=== PATIENT | female | born 1930 | race Caucasian/White ===

== ENCOUNTER 2016-03-23 16:29 | Inpatient (IN) | payer OTHER ==
[~2016-03-23] VITALS: Ht 165.1 cm; Wt 78.7 kg
--- NOTE | ~2016-03-23 | HC ---
[facility] [place] [address] CONSULTATION Name: DAYAMI WORTHINGTONMARLIN Amaya Room #: 420-P ADM IN .R.#: [id number] Admission: 03/23/16 Attend Phys: Concetta Fleming MD Discharge: Date of : 32 Report #: [id number] THIS REPORT FOR: //name// CC: Concetta Fleming PRIMARY CARE PHYSICIAN: Dr. Fleming. REFERRAL PHYSICIAN: Dr. Davenport. REASON FOR REFERRAL: Pneumonia. HISTORY OF PRESENT ILLNESS: The patient is an 85-year-old white female from a nursing facility with increasing dyspnea. Chest x-ray on admission revealed infiltrates. The patient was admitted for pneumonia. A pulmonary consultation was requested. The patient at present cannot give much history. She is awake, appears to mildly distressed and tachypneic. According to records, the patient was found to be hypoxic with saturation 82% on the day of admission. The patient had a mild nonproductive cough along with lower extremity edema and erythema. PAST MEDICAL HISTORY: Is notable for aortic stenosis, COPD with chronic bronchitis and asthma, dementia, depression, gastroesophageal reflux disease, chronic lower extremity edema, hypertension, hyperlipidemia, mitral valve regurgitation, osteoarthritis. ALLERGIES: Are multiple including PENICILLIN, CEPHALOSPORINS, FLUOROQUINOLONES, CLARITHROMYCIN, CLAVULANIC ACID, ARICEPT, CLARITIN, REGLAN, METRONIDAZOLE, MORPHINE, SCOPOLAMINE, SULFA, reactions unspecified. MEDICATIONS: List reviewed, is in the MAR. She is also on albuterol and nebulized albuterol along with Flovent to 220 mcg 2 puffs twice a day, prednisone 10 mg once a day. FAMILY HISTORY: Noncontributory. SOCIAL HISTORY: Remarkable for past history of tobacco use. She has quit years ago. There is no history of alcohol use. She is a resident of nursing care facility. REVIEW OF SYSTEMS: Deferred as the patient is not able to answer to questions. PHYSICAL EXAMINATION: GENERAL: She is awake, appears tachypneic and moderately distressed. VITAL SIGNS: Temperature is 98 degrees Fahrenheit, pulse is 90, respiratory [facility] [address] [place] [address] CONSULTATION Name: ALEJANDRA WORTHINGTON Room #: 420-[facility] IN ..#: [id number] Admission: 03/23/16 Attend Phys: Concetta Fleming MD Discharge: Date of : 32 Report #: [id number] rate is 22, blood pressure is 150/80 mmHg, saturation 92%. HEENT: Normocephalic, atraumatic. NECK: Supple without any lymphadenopathy or thyromegaly. CHEST: Breath sounds are decreased bilaterally with mild expiratory wheezes. CARDIOVASCULAR: Normal S1, S2. There is no murmurs or gallop. There is no JVD. There is no carotid bruit. Pulses are 2+/4+ bilaterally. ABDOMEN: Soft, nontender, no organomegaly or masses felt. EXTREMITIES: There is no cyanosis or clubbing, but remarkable for trace bilateral lower extremity edema. LABORATORY DATA: Portable chest x-ray revealed bibasilar infiltrates. Mild left lower lobe infiltrates is also noted. Electrolytes unremarkable. Liver function test was grossly unremarkable. WBC is 13,100 without a left shift. Eosinophils is mildly elevated at 3.5%. Arterial blood gas revealed pH 7.38, pCO2 of 56, pO2 97 on 4 liters of O2. IMPRESSION: 1. Progressive hypoxemic hypercapnic respiratory failure in this 85-year-old white female. Etiology is probably secondary to underlying pneumonia and probable COPD with exacerbation. 2. Pneumonia, right lower lobe. She is suspected to have nosocomial infectious processes, suspect possible aspiration. Gram-negative is also considered. 3. History of asthma/chronic bronchitis, with exacerbation. 4. Bilateral lower extremity cellulitis. 5. Hypertension. 6. Gastroesophageal reflux disease. 7. Dementia. RECOMMENDATION: Agree with broad spectrum antibiotics along with bronchodilators and corticosteroids. DVT and GI prophylaxis will be addressed. Overall, prognosis is felt to be guarded given advanced age and dementia. Thank you for this consultation. <ELECTRONICALLY SIGNED> By: Elie Szymanski MD 03/31/16 1634 [id number] [id number] Elie Szymanski MD /nt
--- NOTE | ~2016-03-23 | 2DMMODE ---
[facility] [place] [facility] [place] [address] 2 D/M-MODE ECHOCARDIOGRAM Name: ALEJANDRA WORTHINGTON Room #: 245-P [facility] IN .R.#: [id number] Admission: 03/23/16 Attend Phys: Concetta Fleming MD Discharge: Date of : 32 Date of Service: 03/28/16 1245 Report #: [id number] THIS REPORT FOR: //name// Transthoracic Echocardiography Ordering physician: Elie Szymanski Referring physician: Elie Szymanski Window Shade Cutter: JOELLE Rodriguez Indications/History: CHF, HTN, COPD. BP: 191 / HR: 92bpm Height: 65in Weight: 182.6lb 97 Study data: M-mode, complete 2D, complete spectral Doppler, and color Doppler. Location: Bedside. Routine. Image quality was adequate. 2D measurements Normal Normal LVID ED 41.3mm 36-57 IVS ED 7.3mm 6-11 LVID ES 28.4mm 23-40 LVPW ED 6.7mm 6-11 LA volume index 36ml/m2 16-28 AoRoot diam ED 25mm 21-37 LVOT diameter 18mm 18-23 Findings: Left ventricle: The cavity size was normal. Wall thickness was normal. Systolic function was hyperdynamic. The estimated ejection fraction was in the range of 65% to 70%. Wall motion was normal. Right ventricle: The cavity size was normal. Systolic function was normal. Right atrium: The atrium was dilated. Left atrium: The atrium was dilated. Volume index: 36ml/m2 (S). Aortic valve: Trileaflet; mildly thickened, mildly calcified leaflets. Doppler: There was mild to moderate stenosis. No regurgitation. Peak velocity: 311.7cm/s (S). Valve area: 1cm2(VTI). Mean gradient: 16.8mm Hg (S). Peak gradient: 38.9mm Hg (S). [facility] [address] [place] [address] 2 D/M-MODE ECHOCARDIOGRAM Name: ALEJANDRA WORTHINGTON Room #: 245-P [facility] IN ..#: [id number] Admission: 03/23/16 Attend Phys: Concetta Fleming MD Discharge: Date of : 32 Date of Service: 03/28/16 1245 Report #: [id number] Mitral valve: Mildly calcified annulus. Doppler: There was no evidence for stenosis. Moderate regurgitation. Peak E-wave velocity: 156.5cm/s. Peak gradient: 9.8mm Hg (D). Peak A-wave velocity: 124.7cm/s. Tricuspid valve: Structurally normal valve. Doppler: There was no evidence for stenosis. Mild-moderate regurgitation. Regurgitant peak velocity: 396.4cm/s. Peak RV-RA gradient: 63mm Hg (S). Pulmonic valve: Structurally normal valve. Doppler: There was no evidence for stenosis. No regurgitation. Pericardium: There was no pericardial effusion. Aorta: Aortic root: The aortic root was normal in size. Pulmonary artery: Systolic pressure was estimated to be 73mm Hg. Diastolic function: Normal diastolic function. Systemic veins: Inferior vena cava: The vessel was dilated; the respirophasic diameter changes were blunted (< 50%). Conclusions 1. Left ventricle: The cavity size was normal. Wall thickness was normal. Systolic function was hyperdynamic. The estimated ejection fraction was in the range of 65% to 70%. 2. Right atrium: The atrium was dilated. 3. Left atrium: The atrium was dilated. 4. Aortic valve: Trileaflet; mildly thickened, mildly calcified leaflets. 5. Mitral valve: Mildly calcified annulus. Moderate regurgitation. 6. Tricuspid valve: Mild-moderate regurgitation. 7. Pulmonary arteries: Systolic pressure was estimated to be 73mm Hg. <ELECTRONICALLY SIGNED> By: Enrico Gardner MD 03/28/16 1524 1245 1524 Enrico Gardner MD /azalia
--- NOTE | ~2016-03-23 | EKG ---
[address] [address] ELECTROCARDIOGRAM REPORT Name: ALEJANDRA WORTHINGTON Room #: 245-P [facility] IN M.R.#: [id number] Admission: 03/23/16 Attend Phys: Concetta Fleming MD Discharge: Date of : 32 Report #: [id number] THIS REPORT FOR: //name// [facility] Test Date: 2016-03-28 Test Time: 07:08:08 Pat Name: ALEJANDRA WORTHINGTON Department: [facility] Gender: F Funeral Home Manager: aminata : 1930 Requested By: Concetta Fleming Order Number: [id number] MD: Gildardo Srinivasan Measurements Intervals [place] Rate: 100 P: 74 MD: 157 QRS: 36 QRSD: 83 T: 4 QT: 329 QTc: 425 Interpretive Statements Sinus tachycardia Atrial premature complex Compared to ECG 03/23/2016 17:30:30 Atrial premature complex(es) now present Sinus rhythm no longer present Electronically Signed On 03-28-2016 8:24:03 BEAM RACKER by Gildardo Srinivasan [email or web address] <ELECTRONICALLY SIGNED> By: Gildardo Srinivasan MD 03/28/16 0824 0708 Gildardo Srinivasan MD /EPI
--- NOTE | ~2016-03-23 | H ---
[facility] [place] [address] HISTORY AND PHYSICAL Name: SHERONMitaALEJANDRA Room #: 420-P [facility] IN M.R.#: [id number] Admission: 03/23/16 Attend Phys: Concetta Fleming MD Discharge: 04/06/16 Date of : 32 Report #: [id number] THIS REPORT FOR: //name// CC: Concetta Fleming DATE OF SERVICE: 03/23/2016 CHIEF COMPLAINT: Hypoxemia. HISTORY OF PRESENT ILLNESS: The patient is an 85-year-old female who resides at [facility]. She has advanced dementia and unfortunately has been treated for acute bronchitis or pneumonia twice in the past 4 to 5 months. On the day of admission, she was found to be significantly hypoxic. She was brought to [place] for altered mental evaluation where she was found to have findings consistent with pneumonia as well as cellulitis of her lower extremities. She was given IV vancomycin and Fortaz in the Emergency Department and she has been admitted for further medical management. PAST MEDICAL HISTORY: Advanced dementia, hypertension, asthma, depression, gastroesophageal reflux disease, and constipation. ALLERGIES: No known drug allergies. MEDICATIONS: Zyrtec 10 mg daily, albuterol nebulized treatments q.4 hours p.r.n, ProAir inhaler 8.5 inhaler 2 puffs q.6 hours p.r.n., nitroglycerin 0.4 mg sublingual every 5 minutes p.r.n., Bystolic 5 mg daily, lisinopril 10 mg b.i.d., Aldactone 25 mg daily, aspirin 81 mg daily, ibuprofen 200 mg q.4 hours., Tylenol 650 q.6 hours p.r.n., Depakote 250 mg b.i.d., sertraline 100 mg at bedtime, risperidone 0.5 mg at bedtime, Namenda 5 mg b.i.d., lactulose 10 mg b.i.d., calcium carbonate with vitamin D 600/400 one p.o. at bedtime, potassium chloride 10 mEq daily, Lasix 20 mg at bedtime, Flovent 220 mcg 2 puffs b.i.d., Singulair 10 mg at bedtime, Flonase 1 spray in each nostril at bedtime, Colace 100 mg b.i.d, MiraLax 17 grams b.i.d., ranitidine 1 tablet daily, prednisone 10 mg daily. FAMILY HISTORY: Noncontributory. SOCIAL HISTORY: The patient is . She lives at a halfway facility and does not use tobacco or alcohol. REVIEW OF SYSTEMS: GENERAL: She is able to feed herself, but needs assistance with most other activities of daily living. HEENT: Negative. PULMONARY: As per history of present illness. CARDIOVASCULAR: She denies chest pain. [place] [address] HISTORY AND PHYSICAL Name: ELINALEJANDRA A Room #: 420-P [facility] IN M.R.#: [id number] Admission: 03/23/16 Attend Phys: Concetta Fleming MD Discharge: 04/06/16 Date of : 32 Report #: [id number] GASTROINTESTINAL: Incontinent. GENITOURINARY: Incontinent. MUSCULOSKELETAL: She ambulates about the facility in a wheelchair. PHYSICAL EXAMINATION: GENERAL: The patient is an elderly female lying in bed in no apparent distress, wearing oxygen at 2 liters per minute via nasal cannula. HEENT: Head: Normocephalic, atraumatic. Pupils are equal and reactive. Extraocular muscles are intact. Oropharynx is moist. NECK: Supple. Trachea midline. LUNGS: Diffuse expiratory wheezing. CARDIOVASCULAR: Regular rate and rhythm. ABDOMEN: Soft, nontender, nondistended with normoactive bowel sounds. SKIN: Warm and dry. Turgor is adequate. She has mild to moderate erythema and warmth in both distal lower extremities. LYMPHATICS: No cervical or axillary lymphadenopathy. NEUROLOGIC: She is awake, alert, oriented only to self. Moves all extremities and ____ to command without focal neurologic deficit or lateralizing signs. LABORATORY DATA: Pertinent labs include sodium 149, CO2 of 37, anion gap of 5, ALT of 10. Albumin of 2.6. BNP 1238. WBC is normal at 9.5, hemoglobin 11.3, hematocrit 33.8. Differential was unremarkable. Urinalysis is unremarkable. Arterial blood gas reveals pH of 7.4, pCO2 of 61, pO2 of 77. ____ per minute via nasal cannula with oxygen saturation of 95%. Chest x-ray shows cardiomegaly with mild vascular congestion and bilateral interstitial prominence and patchy bilateral lower lobe atelectasis/pneumonitis, right greater than left. ASSESSMENT: 1. Healthcare-acquired pneumonia, concerned with pharyngeal dysphagia and possible aspiration given repeated episodes of respiratory infections. 2. Bilateral lower extremity cellulitis. 3. Hypertension. 4. Gastroesophageal reflux disease. 5. Asthma. 6. Depression. 7. Senile dementia with behaviors. PLAN: Admission, start Solu-Medrol 20 mg every 12 hours. Continue Fortaz and vancomycin. Continue nebulized treatments q.4 hours and we will start her on mechanical soft diet with ground meat and nectar thickened liquids due to concerns with aspiration. We will ask speech therapy to evaluate and treat and may need to proceed with a video swallow though I think given recurrent episodes of pulmonary infections changing her to nectar thickened liquids may be best option. Initiate DVT prophylaxis with sequential compression devices as well as Lovenox. [facility] [address] [address] HISTORY AND PHYSICAL Name: ALEJANDRA WORTHINGTON Monique Room #: 420-P [facility] IN .R.#: [id number] Admission: 03/23/16 Attend Phys: Concetta Fleming MD Discharge: 04/06/16 Date of : 32 Report #: [id number] Of note, a lengthy discussion was held with the patient's daughter and durable power of erisa attorney who was at bedside. All questions were answered. CODE STATUS: DNR established at outside the hospital. <ELECTRONICALLY SIGNED> By: Concetta Fleming MD 04/22/16 1931 12 28 Concetta Fleming MD /nt
--- NOTE | ~2016-03-23 | CNG ---
[facility] [place] [address] CYTO-NONGYN REPORT PROCEDURE Name: ALEJANDRA TOBAR Room #: 420-P ADM IN M.R.#: [id number] Admission: 03/23/16 Date of : 32 Discharge: Report #: [id number] Path Case #: [id number] CYTOPATHOLOGY REPORT COLLECTION DATE: 04/03/2016 RECEIVED DATE: 04/03/2016 SUBMITTING PHYS: Dr. Concetta Fleimng OTHER PHYS: CLINICAL HISTORY: Pneumonia. SPECIMEN(S) RECEIVED: A.Pleural fluid, Right * * * * * * * * * * * * FINAL DIAGNOSIS: A. Pleural fluid, Right: NEGATIVE FOR MALIGNANT CELLS. Scattered lymphocytes and proteinaceous debris. PATHOLOGIST: Eliud Ruiz M.D. REPORT ELECTRONICALLY SIGNED BY: Eliud Ruiz M.D. DATE/TIME: 04/04/2016 11:55 * * * * * * * * * * * * GROSS PATHOLOGY: A. Pleural fluid, Right: The specimen is submitted unfixed, labeled "Alejandra Tobar". Received by the Cytology Department is 20 mL of clear yellow fluid. One ThinPrep slide and a cell block were prepared. (clt 04.03.2016) THERAPY TECH(S): [facility] INITIAL CPT CODE(S): A; 13356, 27670 Professional services performed by [facility] at [facility] [address], [place] [address] Technical services performed by [facility] at [address] [place] [address]., [address], [place] [address]. [facility] [address] [place] [address], [address] [place] [address] PHONE: [phone] [facility] [address] [place] [address] CYTO-NONGYN REPORT PROCEDURE Name: ALEJANDRA TOBAR Room #: 420-P [facility] IN ..#: [id number] Admission: 03/23/16 Date of : 32 Discharge: Report #: [id number] Path Case #: [id number] DIRECTOR: Christoph Vera M.D. * * * END OF REPORT * * *
--- NOTE | ~2016-03-23 | EKG ---
[address] [address] ELECTROCARDIOGRAM REPORT Name: ALEJANDRA WORTHINGTON Room #: 310-P [facility] IN M.R.#: [id number] Admission: 03/23/16 Attend Phys: Concetta Fleming MD Discharge: Date of : 32 Report #: [id number] THIS REPORT FOR: //name// [facility] ED Test Date: 2016-03-23 Test Time: 17:30:30 Pat Name: ALEJANDRAMARLIN BENNETTEDWIN Department: Room: 310 Gender: F Porter [place]: [place] : 1930 Requested By: Hailey Morris Order Number: [id number] MD: Gildardo Srinivasan Measurements Intervals [place] Rate: 84 P: 77 GA: 174 QRS: 39 QRSD: 87 T: 53 QT: 357 QTc: 422 Interpretive Statements Sinus rhythm No previous ECG available for comparison Electronically Signed On 03-24-2016 8:27:23 MEAT STUFFER by Gildardo Srinivasan [email or web address] <ELECTRONICALLY SIGNED> By: Gildardo Srinivasan MD 03/24/16 0827 1730 1730 MD EZIO Evans
[~2016-03-23 16:29] MED LIST: ALBUTEROL2.5 MG/0.5; BYSTOLIC 5 MG5 M1 PO; CALCIUM 600 +1 EAC1 PO; COLACE100 MG PO; FLONASE 0.05%50 MCG INH; FLOVENT HFA 2220 MC1 INH; HEARTBURN RELI150 M1 PO; HYDROCODONE-AP1 EAC6 PO; KLOR-CON 1010 MEQ PO; LASIX 20 MG TAB20 MG PO; MAXITROL EYE DRO5 ML; MIRALAX17 GM; NAMENDA 5 MG TAB5 M1 PO; NITROSTAT0.4 M1; PRINIVIL10 MG PO; PROAIR HFA8.5 GM INH; SALINE NASAL SP30 ML; SINGULAIR 10 MG10 M1 PO; ZOLOFT50 MG PO; ZYRTEC10 MG PO
[2016-03-23 16:30] VITALS: BP 119/62
[2016-03-23 17:20] LABS: ABSOLUTE NEUTROPHILS 6.4 thou/uL (1.4-8.2); BASOPHILS 0.9 % (0.0-2.0); EOSINOPHILS 3.5 % (0.0-3.0); HEMATOCRIT 33.8 % (37.0-47.0); HEMOGLOBIN 11.3 gm/dL (12.0-15.0); LYMPHOCYTES 18.8 % (24.0-44.0); MCH 33.3 pg (26.0-34.0); MCHC 33.3 % (28.0-37.0); MCV 99.9 fL (80.0-100.0); MONOCYTES 9.3 % (1.0-8.0); PLATELET COUNT 152 thou/uL (150-400); POLYS 67.5 % (36.0-66.0); RBC 3.38 mil/uL (4.20-5.00); RDW 15.3 % (10.5-14.5); WBC 9.5 thou/uL (4.0-11.0)
[2016-03-23 17:21] LABS: MANUAL DIFF NO
[2016-03-23 17:34] LABS: ALBUMIN 2.6 g/dL (3.4-5.0); ALKALINE PHOSPHATASE 70 U/L (46-116); ANION GAP 5 mmol/L (7-16); BUN 14 mg/dL (7-18); CALCIUM 8.2 mg/dL (8.5-10.1); CHLORIDE 107 mmol/L (98-107); CO2 37 mmol/L (21-32); CREATININE 0.8 mg/dL (0.6-1.3); GLUCOSE 94 mg/dL (70-99); POTASSIUM 3.9 mmol/L (3.5-5.1); SGOT 13 U/L (15-37); SODIUM 149 mmol/L (136-145); TOTAL BILIRUBIN 0.4 mg/dL (<0.1-1.0); TOTAL PROTEIN 6.5 g/dL (6.4-8.2); TROPONIN-I < 0.04 ng/mL (<0.04-0.07)
[2016-03-23] MEDS ORDERED: ASPIR 8181 MG PO (17:39)
[2016-03-23] MEDS ORDERED: SPIRONOLACTONE25 M1 PO (17:42)
[2016-03-23] MEDS ORDERED: IBUPROFEN 200200 M1 PO (17:43)
[2016-03-23] MEDS ORDERED: TYLENOL325 MG PO (17:43)
[2016-03-23] MEDS ORDERED: CONSTULOSE10 GM/15 M PO (17:45)
[2016-03-23] MEDS ORDERED: DEPAKOTE 250MG250 M1 PO (17:46)
[2016-03-23] MEDS ORDERED: PREDNISONE 10 M10 MG PO (17:46)
[2016-03-23] MEDS ORDERED: RISPERDAL0.5 MG PO (17:47)
[2016-03-23 18:14] LABS: ABG SAMPLE TYPE ARTERIAL; BE(vivo) 10.7 mmol/L (-2 to +3); HCO3 37.5 mmol/L (22.0-26.0); LACTATE 0.99 mmol/L (0.5-2.0); O2(CT) 15.4 mL/dL (15.0-23.0); PCO2 61.8 mmHg (35.0-45.0); PO2 77.5 mmHg (80.0-100.0); STICK SITE L.RADIAL; pH 7.401 (7.360-7.450); sO2 95.1 % (92.0-98.0); tCO2 39.4 mmol/L (24.0-30.0)
[2016-03-23 19:46] LABS: URINE BILIRUBIN NEGATIVE (Negative); URINE BLOOD NEGATIVE (Negative); URINE COLOR YELLOW; URINE GLUCOSE-RANDOM* NEGATIVE (Negative); URINE KETONES TRACE (Negative); URINE LEUKOCYTES-REFLEX NEGATIVE (Negative); URINE PROTEIN (DIPSTICK) NEGATIVE (Negative)
[2016-03-23 19:56] VITALS: BP 113/48
[2016-03-23 21:57] VITALS: BP 114/50
[2016-03-23 23:17] LABS: SGPT 18 U/L (30-65)
[2016-03-24 01:04] VITALS: BP 100/51
[2016-03-24 04:30] VITALS: BP 108/63
[2016-03-24 09:40] VITALS: BP 123/69
[2016-03-24 13:05] VITALS: BP 108/50
[2016-03-24 16:10] VITALS: BP 115/47
[2016-03-24 21:20] VITALS: BP 111/51
[2016-03-25 04:37] LABS: ABG SAMPLE TYPE ARTERIAL; BE(vivo) 6.2 mmol/L (-2 to +3); HCO3 32.8 mmol/L (22.0-26.0); LACTATE 1.05 mmol/L (0.5-2.0); O2(CT) 16.6 mL/dL (15.0-23.0); O2Hb 96.6 % (92.0-98.0); PCO2 56.7 mmHg (35.0-45.0); PO2 97.7 mmHg (80.0-100.0); sO2 97.2 % (92.0-98.0); tCO2 34.5 mmol/L (24.0-30.0)
[2016-03-25 05:05] VITALS: BP 133/94
[2016-03-25 05:15] VITALS: BP 101/66
[2016-03-25 07:26] LABS: HEMATOCRIT 34.7 % (37.0-47.0); HEMOGLOBIN 11.4 gm/dL (12.0-15.0); MCH 32.8 pg (26.0-34.0); MCHC 32.8 % (28.0-37.0); MCV 100.1 fL (80.0-100.0); RBC 3.47 mil/uL (4.20-5.00); RDW 14.8 % (10.5-14.5); WBC 13.1 thou/uL (4.0-11.0)
[2016-03-25 07:30] VITALS: BP 152/77
[2016-03-25 07:33] LABS: CALCIUM 8.6 mg/dL (8.5-10.1); CREATININE 0.7 mg/dL (0.6-1.3)
[2016-03-25 07:42] LABS: POTASSIUM 4.6 mmol/L (3.5-5.1)
[2016-03-25 12:18] VITALS: BP 181/102
[2016-03-25 15:05] VITALS: BP 144/77
[2016-03-25 19:45] VITALS: BP 164/86
[2016-03-26 00:10] VITALS: BP 169/91
[2016-03-26 03:10] VITALS: BP 132/69
[2016-03-26 08:58] VITALS: BP 154/83
[2016-03-26 16:20] VITALS: BP 187/94
[2016-03-26 20:30] VITALS: BP 106/49
[2016-03-27] VITALS (7 sets, daily range): BP systolic 117–199; BP diastolic 43–111
[2016-03-27 05:51] LABS: HEMATOCRIT 35.2 % (37.0-47.0); HEMOGLOBIN 11.3 gm/dL (12.0-15.0); MCH 32.5 pg (26.0-34.0); MCHC 32.1 % (28.0-37.0); MCV 101.3 fL (80.0-100.0); RBC 3.47 mil/uL (4.20-5.00); RDW 14.6 % (10.5-14.5)
[2016-03-27 06:09] LABS: CALCIUM 8.5 mg/dL (8.5-10.1); CREATININE 0.8 mg/dL (0.6-1.3); POTASSIUM 4.5 mmol/L (3.5-5.1)
[2016-03-28] VITALS (45 sets, daily range): BP systolic 96–195; BP diastolic 48–106
[2016-03-28 07:11] LABS: ABG SAMPLE TYPE ARTERIAL; BE(vivo) 2.9 mmol/L (-2 to +3); HCO3 35.4 mmol/L (22.0-26.0); LACTATE 0.85 mmol/L (0.5-2.0); O2Hb 97.7 % (92.0-98.0); sO2 99.2 % (92.0-98.0); tCO2 38.5 mmol/L (24.0-30.0)
[2016-03-28 07:13] LABS: PCO2 103.4 mmHg (35.0-45.0); STICK SITE L.RADIAL; pH 7.152 (7.360-7.450)
[2016-03-28 07:33] LABS: HEMATOCRIT 40.4 % (37.0-47.0); MCH 32.4 pg (26.0-34.0); MCHC 32.2 % (28.0-37.0); MCV 100.5 fL (80.0-100.0); PLATELET COUNT 201 thou/uL (150-400); RBC 4.02 mil/uL (4.20-5.00); RDW 14.8 % (10.5-14.5); WBC 12.5 thou/uL (4.0-11.0)
[2016-03-28 07:36] LABS: MANUAL DIFF YES
[2016-03-28 07:38] LABS: CALCIUM 8.2 mg/dL (8.5-10.1); CREATININE 0.9 mg/dL (0.6-1.3)
[2016-03-28 08:31] LABS: ABSOLUTE NEUTROPHILS 10.9 thou/uL (1.4-8.2); TOTAL CELL COUNT 100
[2016-03-28 08:47] LABS: ABG SAMPLE TYPE ARTERIAL; BE(vivo) 3.6 mmol/L (-2 to +3); HCO3 33.9 mmol/L (22.0-26.0); LACTATE 0.91 mmol/L (0.5-2.0); O2(CT) 18.7 mL/dL (15.0-23.0); O2Hb 95.3 % (92.0-98.0); PO2 95.7 mmHg (80.0-100.0); sO2 95.6 % (92.0-98.0); tCO2 36.5 mmol/L (24.0-30.0)
[2016-03-28 08:50] LABS: PCO2 82.7 mmHg (35.0-45.0); pH 7.231 (7.360-7.450)
[2016-03-28 08:52] LABS: STICK SITE R.RADIAL
[2016-03-28 08:53] LABS: TIDAL VOLUME 320 ml
[2016-03-28 14:10] LABS: ABG SAMPLE TYPE ARTERIAL; BE(vivo) 4.4 mmol/L (-2 to +3); HCO3 35.2 mmol/L (22.0-26.0); LACTATE 0.87 mmol/L (0.5-2.0); O2(CT) 18.3 mL/dL (15.0-23.0); O2Hb 92.1 % (92.0-98.0); PO2 75.6 mmHg (80.0-100.0); sO2 91.6 % (92.0-98.0); tCO2 37.8 mmol/L (24.0-30.0)
[2016-03-28 14:12] LABS: PCO2 87.3 mmHg (35.0-45.0); STICK SITE R.RADIAL; pH 7.223 (7.360-7.450)
[2016-03-28 14:13] LABS: TIDAL VOLUME 340 ml
[2016-03-29] VITALS (23 sets, daily range): BP systolic 103–167; BP diastolic 38–83
[2016-03-29 05:18] LABS: HEMATOCRIT 34.7 % (37.0-47.0); HEMOGLOBIN 11.5 gm/dL (12.0-15.0); MCH 33.1 pg (26.0-34.0); MCHC 33.2 % (28.0-37.0); MCV 99.8 fL (80.0-100.0); RBC 3.48 mil/uL (4.20-5.00); RDW 14.5 % (10.5-14.5); WBC 7.6 thou/uL (4.0-11.0)
[2016-03-29 05:26] LABS: ANION GAP < 0 mmol/L (7-16); BUN 32 mg/dL (7-18); CALCIUM 7.8 mg/dL (8.5-10.1); CHLORIDE 110 mmol/L (98-107); CO2 39 mmol/L (21-32); CREATININE 0.7 mg/dL (0.6-1.3); GLUCOSE 129 mg/dL (70-99); SODIUM 148 mmol/L (136-145)
[2016-03-29 05:32] LABS: ABG SAMPLE TYPE ARTERIAL; BE(vivo) 8.6 mmol/L (-2 to +3); HCO3 35.5 mmol/L (22.0-26.0); LACTATE 1.06 mmol/L (0.5-2.0); O2(CT) 16.2 mL/dL (15.0-23.0); O2Hb 94.6 % (92.0-98.0); PCO2 60.7 mmHg (35.0-45.0); PO2 76.7 mmHg (80.0-100.0); STICK SITE R.RADIAL; pH 7.385 (7.360-7.450); sO2 94.8 % (92.0-98.0); tCO2 37.4 mmol/L (24.0-30.0)
[2016-03-29 05:33] LABS: ABG COMMENT BIPAP 18/ 6; Pressure Support 12 cm H20
[2016-03-30] VITALS (11 sets, daily range): BP systolic 116–177; BP diastolic 49–105
[2016-03-30 05:01] LABS: HEMATOCRIT 34.2 % (37.0-47.0); HEMOGLOBIN 11.2 gm/dL (12.0-15.0); MCH 32.7 pg (26.0-34.0); MCHC 32.8 % (28.0-37.0); MCV 99.8 fL (80.0-100.0); RBC 3.43 mil/uL (4.20-5.00); RDW 14.6 % (10.5-14.5); WBC 8.9 thou/uL (4.0-11.0)
[2016-03-30 05:13] LABS: CALCIUM 7.8 mg/dL (8.5-10.1); CREATININE 0.6 mg/dL (0.6-1.3)
[2016-03-31 05:00] VITALS: BP 151/68
[2016-03-31 06:33] LABS: HEMATOCRIT 34.6 % (37.0-47.0); HEMOGLOBIN 11.4 gm/dL (12.0-15.0); MCH 32.8 pg (26.0-34.0); MCHC 33.1 % (28.0-37.0); MCV 99.1 fL (80.0-100.0); RBC 3.5 mil/uL (4.20-5.00); RDW 14.3 % (10.5-14.5); WBC 10.1 thou/uL (4.0-11.0)
[2016-03-31 06:43] LABS: CALCIUM 7.8 mg/dL (8.5-10.1); CREATININE 0.6 mg/dL (0.6-1.3); POTASSIUM 3.8 mmol/L (3.5-5.1)
[2016-03-31 15:37] VITALS: BP 142/58
[2016-03-31 20:00] VITALS: BP 124/54
[2016-04-01 05:00] VITALS: BP 161/74
[2016-04-01 11:05] VITALS: BP 145/67
[2016-04-01 16:47] VITALS: BP 145/61
[2016-04-01 20:00] VITALS: BP 141/57
[2016-04-02 04:00] VITALS: BP 144/60
[2016-04-02 05:31] LABS: CALCIUM 8.1 mg/dL (8.5-10.1); CREATININE 0.6 mg/dL (0.6-1.3); POTASSIUM 3.6 mmol/L (3.5-5.1)
[2016-04-02 10:56] VITALS: BP 134/57
[2016-04-02 16:23] VITALS: BP 123/47
[2016-04-02 20:00] VITALS: BP 123/48
[2016-04-03 04:00] VITALS: BP 147/59
[2016-04-03 06:36] LABS: HEMATOCRIT 34.2 % (37.0-47.0); HEMOGLOBIN 11.1 gm/dL (12.0-15.0); MCHC 32.3 % (28.0-37.0); MCV 98.8 fL (80.0-100.0); RBC 3.46 mil/uL (4.20-5.00); RDW 14.6 % (10.5-14.5); WBC 16.6 thou/uL (4.0-11.0)
[2016-04-03 07:01] LABS: CALCIUM 7.9 mg/dL (8.5-10.1); CREATININE 0.6 mg/dL (0.6-1.3); POTASSIUM 3.3 mmol/L (3.5-5.1)
[2016-04-03 08:51] VITALS: BP 128/53
[2016-04-03 11:53] LABS: INR 1.1; PROTIME 11.2 Seconds (9.3-11.4)
[2016-04-03 15:40] LABS: TOTAL VOLUME 50 ML
[2016-04-03 17:08] VITALS: BP 115/47
[2016-04-03 19:47] VITALS: BP 105/41
[2016-04-03 20:10] LABS: BF LINING CELLS 3 % (Not Estab.); BF MACROPHAGE 70 % (Not Estab.); BF NEUTROPHILS 3 % (0-24); BF NUCLEATED CELLS 53 /mm3 (0-499); BF RBC 0 /uL (Not Estab.); CLARITY CLEAR (Clear); COLOR STRAW (())
[2016-04-04 06:12] VITALS: BP 113/58
[2016-04-04 08:54] VITALS: BP 106/47
[2016-04-04 16:09] VITALS: BP 117/51
[2016-04-04 16:49] LABS: HEMATOCRIT 33.4 % (37.0-47.0); HEMOGLOBIN 11.1 gm/dL (12.0-15.0); MCH 32.5 pg (26.0-34.0); MCHC 33.1 % (28.0-37.0); MCV 98.1 fL (80.0-100.0); RBC 3.4 mil/uL (4.20-5.00); RDW 14.7 % (10.5-14.5); WBC 16.9 thou/uL (4.0-11.0)
[2016-04-04 17:02] LABS: PROTIME 10.7 Seconds (9.3-11.4)
[2016-04-04 17:06] LABS: CALCIUM 8.2 mg/dL (8.5-10.1); CREATININE 0.7 mg/dL (0.6-1.3); POTASSIUM 4.1 mmol/L (3.5-5.1)
[2016-04-04 20:00] VITALS: BP 125/49
[2016-04-05 04:30] VITALS: BP 149/58
[2016-04-05 11:09] LABS: BODY FLUID ALBUMIN 1.1 g/dL (()); BODY FLUID AMYLASE 36 U/L (()); BODY FLUID GLUCOSE 108 mg/dL (()); BODY FLUID LDH 83 IU/L (())
[2016-04-05 12:59] LABS: TOTAL VOLUME 57
[2016-04-05 20:00] VITALS: BP 132/50
[2016-04-06 04:00] VITALS: BP 144/59
[2016-04-06 05:41] LABS: HEMATOCRIT 34.1 % (37.0-47.0); MCHC 32.2 % (28.0-37.0); MCV 99.2 fL (80.0-100.0); PLATELET COUNT 171 thou/uL (150-400); RBC 3.44 mil/uL (4.20-5.00); RDW 14.5 % (10.5-14.5); WBC 15.4 thou/uL (4.0-11.0)
[2016-04-06 05:53] LABS: MANUAL DIFF YES
[2016-04-06 08:18] LABS: ABSOLUTE NEUTROPHILS 12.3 thou/uL (1.4-8.2); ANISOCYTOSIS 1+; TOTAL CELL COUNT 100
[2016-04-06] MEDS ORDERED: DUONEB 2.5-0.5 M3 ML INH (11:27)
[2016-04-06] MEDS ORDERED: CATAPRES-TTS 20.2 M1 TRANSDERM (11:28)
[2016-04-06] MEDS ORDERED: LASIX 40 MG TAB40 M1 PO (11:30)
[2016-04-06] MEDS ORDERED: FLORANEX PACKET1 GM PO (11:31)
[2016-04-06] MEDS ORDERED: PREDNISONE 10 M10 M1 PO (11:32)
[2016-04-06 14:08] LABS: BF LINING CELLS 2 % (Not Estab.); BF MACROPHAGE 4 % (Not Estab.); BF NEUTROPHILS 10 % (0-24); BF NUCLEATED CELLS 119 /mm3 (0-499); BF RBC 0 /uL (Not Estab.); CLARITY CLOUDY (Clear); COLOR CL (())
[2016-04-10 08:06] LABS: BODY FLUID ALBUMIN 1.4 g/dL (()); BODY FLUID GLUCOSE 131 mg/dL (()); BODY FLUID LDH 100 IU/L (()); BODY FLUID PROTEIN 1.8 g/dL (())
== END 2016-04-06 13:51 | DRG 177 ==
LOC: ER 16:29 → EROBS 18:14 → 3N 18:14 → ICU 03-28 07:55 → 4E 03-30 21:47
PROVIDERS: Emergency Medicine; Internal Medicine; Internal Medicine Pulmonary Disease
PROC: 0W9930Z Drainage of Right Pleural Cavity with Drainage Device, Percutaneous Approach (ICD-10-PCS; 2016-04-03)
PROC: 0W9B30Z Drainage of Left Pleural Cavity with Drainage Device, Percutaneous Approach (ICD-10-PCS; principal; 2016-04-05)
DX: J69.0 Pneumonitis due to inhalation of food and vomit (principal); E43 Unspecified severe protein-calorie malnutrition; J96.02 Acute respiratory failure with hypercapnia; G92 Toxic encephalopathy; J96.01 Acute respiratory failure with hypoxia; L03.116 Cellulitis of left lower limb; L03.115 Cellulitis of right lower limb; J90 Pleural effusion, not elsewhere classified; I10 Essential (primary) hypertension; K21.9 Gastro-esophageal reflux disease without esophagitis; Z79.899 Other long term (current) drug therapy; Z88.6 Allergy status to analgesic agent; Z88.2 Allergy status to sulfonamides; Z88.8 Allergy status to other drugs, medicaments and biological substances; Z68.28 Body mass index [BMI] 28.0-28.9, adult; Z66 Do not resuscitate; F03.90 Unspecified dementia, unspecified severity, without behavioral disturbance, psychotic disturbance, mood disturbance, and anxiety; R13.13 Dysphagia, pharyngeal phase; J44.9 Chronic obstructive pulmonary disease, unspecified; I35.0 Nonrheumatic aortic (valve) stenosis; E78.5 Hyperlipidemia, unspecified; I34.0 Nonrheumatic mitral (valve) insufficiency; M19.90 Unspecified osteoarthritis, unspecified site
CPT/HCPCS: 10078; 10096; 10183; 27000